=== PATIENT | male | born 1995 | race Caucasian/White ===

== ENCOUNTER 2017-01-26 05:27 | Emergency (ER) | payer BC ==
[2017-01-26 05:42] VITALS: BP 145/81; PULSE 83; RESP 18; TEMP 97.9; O2SAT 96
--- NOTE | 2017-01-26 05:45 | EDPHY ---
H & P Stated Complaint: Right thumb laceration Time Seen by Provider: 01/26/17 05:34 HPI/ROS: HPI The patient presents with right thumb lacerations sustained about 30 min prior to arrival in the emergency department. He was trying to adjust a fan that he had on the floor of his room. His thumb got caught in the metal blade. He had bleeding immediately. He denies any numbness or tingling of the thumb. He has been able to move it normally. 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 REVIEW OF SYSTEMS Constitutional: No fever, no chills. Skin: No rashes. Neurological: No headache. 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 PHYSICAL General Appearance: Alert, no distress Respiratory: Breathing comfortably Neurological: A&O, full range of motion of thumb with sensation intact to light touch Skin: Warm and dry, no rashes Extremities: Right thumb with 3 cm laceration which is longitudinal at the tip and extends proximally along the nail fold, though does not involve the nail bed Psychiatric: Patient is oriented X 3, there is no agitation Source: Patient Exam Limitations: No limitations Constitutional: Initial Vital Signs Temperature (C) 36.6 C 01/26/17 05:39 Heart Rate 83 01/26/17 05:39 Respiratory Rate 18 01/26/17 05:39 Blood Pressure 145/81 H 01/26/17 05:39 O2 Sat (%) 96 01/26/17 05:39 O2 Delivery Mode Room Air Allergies/Adverse Reactions: No Known Allergies Allergy (Unverified 01/26/17 05:39) Home Medications: Medication Instructions Recorded Lexapro 01/26/17 Medical Decision Making Procedures: LACERATION REPAIR Procedure: Laceration repair. Verbal consent was obtained from the patient. The linear 3 cm laceration on the right thumb was anesthetized using digital nerve block of the thumb using bupivacaine 0.5%. The wound was scrubbed, draped and explored to its base with a gloved finger. There were no deep structures involved. No tendon injury was identified. The wound required extensive debridement . The wound was repaired with 7 sutures of 4-0 nylon, simple interrupted. The wound repair was complex. The procedure was performed by myself. Differential Diagnosis: 21-year-old male with right thumb laceration sustained just 30 min prior to presentation. He is neurovascularly intact. There is no sign of tendon injury. Plan for treatment with sutures. Doubt bony involvement, thus no x-ray obtained. No foreign body sensation. Departure - Departure Disposition: Home, Routine, Self-Care Clinical Impression: Laceration of thumb Qualifiers: Encounter type: initial encounter Damage to nail status: without damage Foreign body presence: without foreign body Laterality: right Qualified Code(s) : S61.011A - Laceration without foreign body of right thumb without damage to nail, initial encounter Condition: Good Instructions: Care For Your Stitches (ED), Laceration (ED) Additional Instructions: Please return to the emergency department in 1 week for suture removal. Referrals: Sid Pang MD [Primary Care Provider] - As per Instructions
== END 2017-01-26 06:38 | disposition home or self-care (01) ==
LOC: EEVIPCON 05:27
PROC: 0HQFXZZ Repair Right Hand Skin, External Approach (ICD-10-PCS; principal; 2017-01-26)
DX: S61.011A Laceration without foreign body of right thumb without damage to nail, initial encounter (principal); W26.8XXA Contact with other sharp object(s), not elsewhere classified, initial encounter; Y99.8 Other external cause status; Y93.89 Activity, other specified